=== PATIENT | female | born 1990 | race American Indian/Alaskan Native ===

== ENCOUNTER 2017-07-17 10:14 | Outpatient (CLI) | payer MEDICAID ==
--- NOTE | 2017-07-17 17:58 | XRay Report ---
FINAL REPORT EXAM: XR ANKLE 3+V LT HISTORY: LEFT ANKLE PAIN TECHNIQUE: PRIORS: None. FINDINGS: There is surgical screw bridging the medial malleolus. Surgical plate screws present distal fibula. These bridge remote healed fractures. Hardware appears intact. No abnormal bony lucencies are seen. There is no acute fracture identified. No destructive bony changes identified. IMPRESSION: Status post ORIF of bimalleolar fractures
== END 2017-07-17 10:15 | disposition home or self-care (01) ==
LOC: SPVIMAG 10:14
PROVIDERS: ATTEND Orthopaedic Surgery Sports Medicine
DX: M25.572 Pain in left ankle and joints of left foot (principal); S82.842D Displaced bimalleolar fracture of left lower leg, subsequent encounter for closed fracture with routine healing; X58.XXXD Exposure to other specified factors, subsequent encounter

== ENCOUNTER 2021-01-09 14:18 | Emergency (ER) | payer MEDICAID | END 2021-01-09 17:40 | disposition left against medical advice (07) | LOC: ED 14:18 | DX: I82.409 Acute embolism and thrombosis of unspecified deep veins of unspecified lower extremity (principal); Z53.21 Procedure and treatment not carried out due to patient leaving prior to being seen by health care provider ==